=== PATIENT | male | born 1985 | race Caucasian/White ===

== ENCOUNTER 2024-03-12 14:11 | Emergency (ER) | payer OTHER ==
[~2024-03-12] VITALS: Ht 182.9 cm; Wt 132.9 kg
[~2024-03-12 14:11] MED LIST: CEPH500 PO; HYDACE5 PO; OXYACE5T PO; PROM25 PO; RXHYDACE PO
[2024-03-12] MEDS ORDERED: Ocuflox5 ML RIGHTEYE (14:36)
== END 2024-03-12 14:37 | disposition home or self-care (01) ==
LOC: ER 14:11
DX: H10.89 Other conjunctivitis (principal)
CPT/HCPCS: 99282